=== PATIENT | male | born 1970 | race Two or more races ===

== ENCOUNTER 2022-12-10 17:14 | Emergency (ER) | payer MEDICAID, OTHER ==
[~2022-12-10] VITALS: Ht 165.1 cm; Wt 71.8 kg
[2022-12-10] MEDS ORDERED: HYDROcodone-ACET 5/325MG TAB PO ONE (22:45)
[2022-12-10] MEDS ORDERED: ONDANSETRON ODT 4 MG TAB PO ONE (22:45)
[2022-12-10] MEDS ORDERED: IBUP-1456 PO (22:56)
[2022-12-10 22:58] VITALS: BP 143/95; PULSE 98; RESP 16; TEMP 98; O2SAT 96
== END 2022-12-10 23:20 | disposition home or self-care (01) ==
LOC: ER 17:14
DX: S09.90XA Unspecified injury of head, initial encounter (principal); D17.9 Benign lipomatous neoplasm, unspecified; R51.9 Headache, unspecified; J45.909 Unspecified asthma, uncomplicated; W18.09XA Striking against other object with subsequent fall, initial encounter; Y93.89 Activity, other specified; Y92.89 Other specified places as the place of occurrence of the external cause; Y99.8 Other external cause status
CPT/HCPCS: 70450; 99284; Q0162

== ENCOUNTER 2023-03-16 01:41 | Emergency (ER) | payer MEDICAID ==
[~2023-03-16] VITALS: Ht 165.1 cm; Wt 76.7 kg
[~2023-03-16 01:41] MED LIST: IBUP-1456 PO
[2023-03-16] MEDS ORDERED: ACETAMINOPHEN 500 MG TAB PO ONE (04:00)
[2023-03-16 05:50] VITALS: BP 139/79; PULSE 88; RESP 17; TEMP 97.4; O2SAT 96
[2023-03-16] MEDS ORDERED: IBUP-1456 PO (07:59)
== END 2023-03-16 08:02 | disposition home or self-care (01) ==
LOC: ER 01:41
DX: M79.651 Pain in right thigh (principal); K40.20 Bilateral inguinal hernia, without obstruction or gangrene, not specified as recurrent; J45.909 Unspecified asthma, uncomplicated
CPT/HCPCS: 71046; 72192